=== PATIENT | male | born 1995 | race Caucasian/White ===

== ENCOUNTER 2019-06-10 09:55 | Inpatient (IN) ==
[2019-06-10] MEDS ORDERED: NS 1,000 ML IV ONE ×2 (10:10→14:07)
[2019-06-10] MEDS ORDERED: ZOFRAN IV ONE (10:10)
[2019-06-10 10:45] LABS: BASO# 0.02 X1000 (0.0-0.2); BASO% 0.1 % (0.0-0.8); EOS# 0.02 X1000 (0.0-0.7); EOS% 0.1 % (0.0-10.0); HEMATOCRIT 48.2 % (42.0-52.0); HEMOGLOBIN 15.8 g/dL (14.0-18.0); IMM GRAN# 0.04 X1000 (0.0-0.04); IMM GRAN% 0.2 % (0.0-0.5); LYMPH# 0.31 X1000 (1.2-3.4); LYMPH% 1.6 % (20.5-51.1); MCH 25.7 PG (27-31); MCHC 32.8 g/dL (33-37); MCV 78.5 FL (81-99); MONO# 0.89 X1000 (0.11-0.59); MONO% 4.6 % (1.7-9.3); MPV 10.9 FL (7.4-10.4); NEUT# 17.86 X1000 (1.4-6.5); NEUT% 93.4 % (42.2-75.2); PLT 280 X1000 (130-400); RBC 6.14 XMIL (4.7-6.1); RDW 14.6 % (11.5-14.5); WBC 19.14 X1000 (4.8-10.8)
[2019-06-10 10:54] LABS: AGAP 13; ALBUMIN 4.5 g/dL (3.5-5.0); ALKALINE PHOSPHATASE 87 U/L (32-122); BUN 15 mg/dL (8-22); CALCIUM 9.3 mg/dL (8.8-10.2); CHLORIDE 101 mmol/L (98-107); COSMO 281; ESTIMATED GFR > 60; GLUCOSE 118 mg/dL (70-104); GOT 22 U/L (10-34); GPT 19 U/L (10-44); LIPASE 16 U/L (13-60); POTASSIUM 4.4 mmol/L (3.5-5.1); SODIUM 140 mmol/L (136-145); TCO2 27 mmol/L (25-35); TOTAL PROTEIN 7.1 g/dL (6.3-8.3)
[2019-06-10 10:57] LABS: LYMPHS 7 % (21-51); MONO 3 % (1-9); SEGS 90 % (42-75)
[2019-06-10 11:28] LABS: BILIRUBIN URINE NEGATIVE (NEGATIVE); BLOOD URINE NEGATIVE (NEGATIVE); CLARITY CLEAR (CLEAR); COLOR YELLOW; GLUCOSE URINE NEGATIVE (NEGATIVE); KETONE URINE TRACE mg/dL (NEGATIVE); LEUKOCYTES URINE TRACE (NEGATIVE); NITRITE URINE NEGATIVE (NEGATIVE); PROTEIN URINE TRACE mg/dL (NEGATIVE); SP GRAVITY URINE 1.005; UROBILINOGEN URINE 1 mg/dL
[2019-06-10 11:52] LABS: URINE EPITHELIAL CELLS <10 /HPF (<10); URINE SOURCE CLEAN CATCH; URINE WBC <10 /HPF (<10)
--- NOTE | 2019-06-10 12:36 | Diag Imaging Result Doc PS360 ---
EXAM: CHEST-1 VIEW HISTORY: r/o sepsis TECHNIQUE: Single view COMPARISON: None. FINDINGS: The lungs are well expanded. The heart is not enlarged. The vessels are not distended. There are no infiltrates. No effusion identified. IMPRESSION: No pneumonia Electronically signed by Shaheen Hartmann 06/10/2019 12:34 PM
--- NOTE | 2019-06-10 12:51 | Diag Imaging Result Doc PS360 ---
EXAM: CT ABD/PELVIS W/IV CONT ONLY HISTORY: abdo pain TECHNIQUE: CT abdomen and pelvis with intravenous contrast COMPARISON: None. FINDINGS: No calcified gallstones or adjacent inflammation. Normal liver, spleen, pancreas, adrenal glands, and kidneys. No hydronephrosis. Normal aorta. There are multiple fluid distended loops of bowel in the upper and mid abdomen. There is stool throughout the colon. The colon is not overly distended. No inflammation about the cecum. No abscess. Urinary bladder is only mildly distended. Normal prostate. IMPRESSION: Ileus or early partial obstruction. There is likely enteritis. This exam was performed using automated exposure control, adjustment of mA or kV according to patient size, and/or use of iterative reconstruction technique. Electronically signed by Shaheen Hartmann 06/10/2019 12:48 PM
[2019-06-10 13:36] LABS: INR 0.99; PROTIME 13.6 Seconds (11.0-16.0)
[2019-06-10 13:37] LABS: PTT 30.7 Seconds (22.3-41.8)
--- NOTE | 2019-06-10 13:59 | PROVIDER DOCUMENTATION ---
This chart was entered by Alexsandra Guaman Scribe, acting as scribe for Soren Landeros MD. HPI-Abdominal Pain/GI Problem - General Chief Complaint: Abdominal Pain Stated Complaint: VOMITING Time Seen by Provider: 06/10/19 10:10 Source: patient Allergies/Adverse Reactions: Patient Allergies Allergy/AdvReac Type Severity Reaction Status Date / Time promethazine HCl * AdvReac Unknown Verified 04/09/19 20:11 [From Phenergan] Home Medications: Home Medication List Medication Instructions Recorded Confirmed Last Taken Type NK [No Home Medications] 06/10/19 06/10/19 Unknown History - History of Present Illness-ABD Nature of Presenting Problems: Patient is a 24 year old male who presents with generalized abdominal pain. States nausea, vomiting and diarrhea with abdominal pain. Reports symptoms started last night. Abdominal Pain Onset Location: reports: generalized abdomen Pain Radiation: reports: no radiation Quality of Pain: reports: cramping Severity in ED: reports: mild Onset/Duration: reports: last night Timing: reports: still present Modifying Factors: improves with: nothing Associated Symptoms: reports: diarrhea, nausea, vomiting # of Diarrhea Episodes: 4 # of Vomiting Episodes: 10 Bruising or Bleeding Gums?: No Similar Symptoms Previously?: Yes Recently seen or treated by another doctor?: No Review of Systems - Adult - REVIEW OF SYSTEMS - ADULT Constitutional: reports: no symptoms reported. denies: chills, fever, fatique Eyes: reports: no symptoms reported Ears, Nose, Mouth & Throat: reports: no symptoms reported Cardiovascular: reports: no symptoms reported Respiratory: reports: no symptoms reported Gastrointestinal: reports: see HPI, abdominal pain (generalized), diarrhea, nausea, vomiting Genitourinary: reports: no symptoms reported Musculoskeletal: reports: no symptoms reported Integumentary: reports: no symptoms reported Neurological: reports: no symptoms reported Psychiatric: reports: no symptoms reported Endocrine: reports: no symptoms reported Hematologic/Lymphatic: reports: no symptoms reported Allergic/Immunologic: reports: no symptoms reported All Other Systems: Reviewed and Negative Past History - Adult - PAST MEDICAL HISTORY-ADULT Review of Records: reports: Old Records Reviewed, Social history reviewed & non- contributory. Major Childhood Illnesses: reports: denies history Cardiovascular: reports: denies history Respiratory: reports: denies history Gastrointestinal: reports: denies history Obstetrical/Gynecological: reports: denies history Genitourinary: reports: denies history Musculoskeletal: reports: denies history Neurological: reports: denies history Endocrine/Immune: reports: denies history Other Conditions: reports: denies history - PRIOR SURGERIES/PROCEDURES Surgical/Procedure History: reports: reviewed, not pertinent - IMMUNIZATION STATUS Childhood Immunizations: See Nurse Assessment Flu Vaccine: See Nurse Assessment - FAMILY HISTORY Family History: reviewed, not pertinent - SOCIAL HISTORY Smoking: cigarettes, less than 1 pack/day Provider spent 3-5 mins advising pt. on dangers of tobacco.: Discussed manners to quit use, and f/u contacts for add'l counseling. Substance Use: denies Physical Exam-General - PHYSICAL EXAM-ADULT Initial Vital Signs Reviewed: Yes - CONSTITUTIONAL General Appearance: alert, no apparent distress. negative: lethargic - HEAD, EARS, NOSE, MOUTH & THROAT HENMT: normocephalic/atraumatic, other (dry mucous membranes). negative: angioedema - RESPIRATORY Respiratory: chest non-tender, lungs clear, normal breath sounds. negative: rales, stridor, wheezing - CARDIOVASCULAR Cardiovascular: normal peripheral pulses, regular rate, rhythm. negative: tachycardia - GASTROINTESTINAL (ABDOMEN) Abdominal Exam: normal bowel sounds, soft, tenderness (diffuse). negative: g uarding, rigid - SKIN Integumentary: normal color, normal turgor, warm/dry. negative: diaphoresis, pallor, rash - NEUROLOGIC Neurologic: grossly normal. negative: aphasia, facial droop - PSYCHIATRIC Psych/Mental Status: normal mood/affect, oriented x 3. negative: anxious Progress - PLAN OF CARE/RESULTS Progress/Plan/Lab Results: Vital Signs - 8 hr 06/10/19 10:03 Temperature 98 F Pulse Rate 110 H Respiratory Rate 18 Blood Pressure 101/69 O2 Sat by Pulse Oximetry 100 Orders Category Date Time Status AMYLASE [CHEM] Stat Lab 06/10/19 10:19 Received CBC WITH DIFF [HEME] Stat Lab 06/10/19 10:19 Received COMPREHENSIVE METABOLIC PANEL [CHEM] Stat Lab 06/10/19 10:07 Uncollected LIPASE [CHEM] Stat Lab 06/10/19 10:[address] W/POSS RFLX CULT [URINALYSIS] Stat Lab 06/10/19 10:07 Uncollected 0.9% Sodium Chloride Inj [Ns] 1,000 ml Med 06/10/19 10:10 Active IV 999 mls/hr Ondansetron [Zofran] Med 06/10/19 10:10 Discontinued 4 mg IV NOW ONE Result Diagrams: 06/10/19 10:19 06/10/19 10:19 - XRAY 1 XRAY Study: Chest Impression: See EMR Report ( EXAM: CHEST-1 VIEW HISTORY: r/o sepsis TECHNIQUE: Single view COMPARISON: None. FINDINGS: The lungs are well expanded. The heart is not enlarged. The vessels are not distended. There are no infiltrates. No effusion identified. IMPRESSION: No pneumonia Electronically signed by Shaheen Hartmann 06/10/2019 12:34 PM 06/10/19 1234 Interpreting Physician: Shaheen Hartmann MD Dictated Date/Time: 06/10/19 1233 cc: Soren Landeros MD; None,PCP) - CT/MRI 1 CT Study: Abdomen, Pelvis Impression: See EMR Report ( EXAM: CT ABD/PELVIS W/IV CONT ONLY HISTORY: abdo pain TECHNIQUE: CT abdomen and pelvis with intravenous contrast COMPARISON: None. FINDINGS: No calcified gallstones or adjacent inflammation. Normal liver, spleen, pancreas, adrenal glands, and kidneys. No hydronephrosis. Normal aorta. There are multiple fluid distended loops of bowel in the upper and mid abdomen. There is stool throughout the colon. The colon is not overly distended. No inflammation about the cecum. No abscess. Urinary bladder is only mildly distended. Normal prostate. IMPRESSION: Ileus or early partial obstruction. There is likely enteritis. This exam was performed using automated exposure control, adjustment of mA or kV according to patient size, and/or use of iterative reconstruction technique. Electronically signed by Shaheen Hartmann 06/10/2019 12:48 PM 06/10/19 1248 Interpreting Physician: Shaheen Hartmann MD Dictated Date/Time: 06/10/19 1241 cc: Soren Landeros MD; None,PCP) - CONSULTS/PCP/HOSPITALIST Notification #1 *Consult/PCP/Hospitalist*: Dr. Esquivel Time Discussed: 13:55 Reason/Comments: Dr. Landeros consulted with Dr. Esquivel about patient Consult Disposition: Will see in ED, Admit Departure - Departure Date of Disposition Decision: 06/10/19 Time of Disposition Decision: 13:55 DIAGNOSIS: Ileus, Leukocytosis, Enteritis, Sepsis Disposition: ADMITTED INPATIENT 09 Certified Medical Emergency: Emergent Condition: Fair Referrals and Follow-Ups: None,PCP [Primary Care Provider] - Discharge Education: Steps to Quit Smoking, [id number] - Critical Care Note This patient required my direct & personal management of CC.: No Attestation - Physician/ HAKAN Attestation Patient care was provided by Advanced Practice Provider:: No The physician spent face to face time with patient:: Yes Advanced Practice Provider documentation review:: Supervising physician onsite and consulted in the evaluation and care of this patient. The physician did have a face to face encounter with the patient. Sepsis: Tissue Perfusion Assmt - Physical Exam Assessment Date: 06/10/19 Time Assessment Initialized: 14:09 Vital Signs: Last Vital Signs Temp 99.2 F 06/10/19 13:09 Pulse 89 06/10/19 13:44 Resp 18 06/10/19 13:44 BP 105/57 06/10/19 13:52 Pulse Ox 97 06/10/19 13:44 Height 5 ft 10 in Weight 68.039 kg Lung Sounds:: lungs clear Heart Sounds:: Regular Peripheral Pulse Evaluation:: radial (R): 4+, radial (L): 4+, dorsalis-pedis (R): 4+, dorsalis-pedis (L): 4+, posterior tibialis (R): 4+, posterior tibialis (L): 4+ Skin Exam:: turgor good - Impression Impression:: Tissue Perfusion Adequate - Plan Plan:: See Orders This chart was documented by the indicated scribe, (Alexsandra Guaman Scribe) and accurately reflects the services I performed and decisions made by me, Soren Suh MD, as attested by the provider's signature.
[2019-06-10] MEDS ORDERED: LEVAQUIN 500 MG/D5W 500 MG/100 ML IVPB IV ONE (14:07)
[2019-06-10] MEDS ORDERED: ZOFRAN IV PRN (14:26)
[2019-06-10] MEDS ORDERED: NS 1,000 ML IV SCH (14:30)
[2019-06-10] MEDS: NS 1,000 ML IV SCH ×2 (15:33→23:13)
[2019-06-10] MEDS: FLAGYL 500 MG/NS 500 MG/100 ML IVPB IV SCH ×2 (15:33→20:51)
[2019-06-10] MEDS: TYLENOL PO PRN ×2 (17:22→23:10)
[2019-06-10 17:32] LABS: UR AMPHETAMINES QUAL NONE DETECTED (NONE DETECT); UR BARBITUATES QUAL NONE DETECTED (NONE DETECT); UR BENZODIAZEPIN QUAL NONE DETECTED (NONE DETECT); UR CANNABINOIDS QUAL NONE DETECTED (NONE DETECT); UR COCAINE QUAL NONE DETECTED (NONE DETECT); UR METHADONE QUAL NONE DETECTED (NONE DETECT); UR OPIATES QUAL NONE DETECTED (NONE DETECT); UR OXYCODONE QUAL NONE DETECTED (NONE DETECT); UR PCP QUAL NONE DETECTED (NONE DETECT)
[2019-06-10] MEDS ORDERED: SODIUM CHLORIDE 0.9% INJ PRN (17:34)
[2019-06-10] MEDS ORDERED: PHENERGAN IV PRN (17:34)
[2019-06-10] MEDS: PHENERGAN PO PRN (18:02)
[2019-06-10] MEDS: NICODERM PATCH TD SCH (18:02)
--- NOTE | 2019-06-10 19:58 | HISTORY AND PHYSICAL ---
PRIMARY CARE PROVIDER: No one. PRIMARY NANOSCIENCE TECHNICIAN: Located at [facility], named Fred Deshpande. CHIEF COMPLAINT: Abdominal pain, vomiting, and diarrhea. HISTORY OF PRESENT ILLNESS: Mr. Reinier Singh is a 24-year-old male with a medical history of illicit drug history abuse with most recently it being methamphetamines. 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 Also had a history of viral meningitis and migraines. Apparently around 9 p.m. last night, started developing bilateral lower quadrant abdominal pain and then started having vomiting every 30 minutes of the water that he would drink, along with a 4 or 5 watery diarrhea-type stools. He did have chills, but denied fever, and imaging reveals that he has an ileus or early partial obstruction and even enteritis. We will get him transferred to [facility]. We will consult General Surgery, and once there is a GI on-call for non-private, then may be we can consult Gastroenterology if needed. PAST MEDICAL HISTORY: 1. 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 2. Viral meningitis at 4 years old. 3. Migraines. SURGICAL HISTORY: Full teeth extraction and currently has dentures. SOCIAL HISTORY: He is a [id number]-day smoker since the age of 15. Denies alcohol but uses crystal methamphetamine. The last time he used it was 1-1/2 months ago. He says marijuana he used last 3 years ago, and cocaine was 6 years ago. Currently living with his mom. 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 FAMILY HISTORY: On the mother's side of the family, grandfather had a heart attack in his 40s. There is Parkinson. His grandmother had a pacemaker, stroke, Alzheimer. On his father's side of the family, he had a heart attack in his 50s, had end-stage renal disease, lung cancer in his grandfather. ALLERGIES: IV Phenergan. HOME MEDICATIONS: None. REVIEW OF SYSTEMS: A 14 point review of systems is complete, and all were negative for those mentioned in the above HPI. PHYSICAL EXAMINATION: VITAL SIGNS: Temperature 99.2 degrees, heart rate 91, respiratory rate 17, blood pressure 109/60, O2 saturation 100% on room air. GENERAL: Mr. Reinier Singh is a 24-year-old male. He is in no acute distress. He is able answer questions appropriately. HEENT: Atraumatic, normocephalic. Pupils equal, round, and reactive to light. Extraocular movements intact. Mucous membranes are moist. He has his dentures in. NECK: Trachea midline. CARDIOVASCULAR: S1, S2. Regular rate and rhythm. No rubs, gallops, murmurs. No lower extremity edema. +2 dorsalis and radial pulses. Negative for JVD or carotid bruit bruits. PULMONARY: Clear to auscultation. Bilateral breath sounds. No accessory muscle use or work of breathing noted GASTROINTESTINAL: Soft, tender in bilateral lower quadrants. Hypoactive bowel sounds. Nondistended. EXTREMITIES: Moves all extremities equally with full range of motion. NEUROLOGIC: A and O x3. Follows commands. Sensory is intact. SKIN: Warm, dry, intact. LABORATORY DATA: White blood cells 19,000, hemoglobin 15, hematocrit 48, platelet count 280,000. INR 0.99, PTT is 30.7. Sodium 140, potassium 4.4, BUN 15, creatinine 1.0, glucose 118, calcium 9.3, bilirubin 0.60, AST 22, ALT 19 CK 69. Troponin less than 0.01. Albumin 4.5. Amylase 45, lipase 16. Lactate 2.3. Urinalysis: Trace protein, trace white blood cells. IMAGING: Abdominal and pelvic CT: Ileus or early partial obstruction, likely with enteritis. Chest x-ray: No pneumonia. ASSESSMENT AND PLAN: 1. Enteritis with elevated lactate and white blood cell count. Medications include Flagyl 500 mg IV every 6 hours. He also had a 1-time dose of Levaquin 500 mg. 2. Ileus versus early partial small bowel obstruction with history of gastroparesis. He will be on IV fluids and n.p.o. for now. General Surgery consulted for any recommendations. 3. History of Guillain-[place] and neuropathy of the feet. 4. Migraines. Currently complains of a headache. 5. History of cocaine, marijuana, and crystal methamphetamine abuse, but most recently was crystal methamphetamine. Cessation discussed. He probably needs assistance with quitting that, and we have ordered a urine drug screen. 6. Deep venous thrombosis prophylaxis. SCDs. Dictated by MATT Nuno for Ritesh Esquivel MD cc: MATT Nuno MD
--- NOTE | 2019-06-10 21:36 | HISTORY AND PHYSICAL ---
ADDENDUM: The patient presented to the hospital with abdominal pain, nausea, vomiting. States that all of his symptoms started yesterday and continued to worsen. Does have a history of gastroparesis. He has never had infection in his colon to their knowledge. CT shows enteritis versus questionable obstruction. We are going to admit him to the hospital, keep him NPO, place on antibiotics and will follow. Please see full note. cc: Ritesh Esquivel MD
--- NOTE | 2019-06-10 21:47 | CONSULTATION ---
DATE OF CONSULTATION: 06/10/2019 Mr. Reinier Singh is a is a 24-year-old white male admitted with generalized abdominal pain. We were asked to see him by our hospitalists. Mr. Reinier Singh is a 24-year-old white male who was feeling good yesterday but woke up during the night with nausea, vomiting and diarrhea. This has persisted causing him to present to the emergency department. A CT scan of his abdomen and pelvis was performed which suggested enteritis versus early small bowel obstruction. We were asked to evaluate him. He has had no previous abdominal surgery. No history of hernia. PAST MEDICAL HISTORY: He had Guillain-[place] and gastroparesis because of this, he is seen by credit risk management director at [place]. MEDICATIONS: None. ALLERGIES: Listed as Phenergan. FAMILY HISTORY: Was reviewed. It was not pertinent. His mother has some colon problems. SOCIAL HISTORY: He smokes less than a pack of cigarettes a day. He works in car [employer]. REVIEW OF SYSTEMS: A 14-point review of systems was performed and was essentially negative except for the history of present illness. On exam he is 5 feet 10 inches, weighs 150 pounds. Temperature is 98 degrees, pulse rate 110, blood pressure 101/69, O2 saturation 100%. He is awake, cooperative young male, slim, good otherwise healthy appearing. No jaundice. No oral lesions. No cervical or supraclavicular lymphadenopathy. His heart has regular rate. Lungs are clear to auscultation and percussion bilaterally. Abdomen was a little bit distended but not tender. He had no previous scar. No palpable mass. No costovertebral tenderness. Rectal exam was not performed. He does have palpable peripheral pulses. No peripheral edema. Neurologically he is alert and oriented x3 and appropriate. DATA: CT scan suggested enteritis versus early small-bowel obstruction. Otherwise was normal. IMPRESSION: Gastroenteritis with protracted nausea, vomiting and diarrhea. PLAN: He is being hydrated, receiving IV antibiotics and he has medications for symptoms such as nausea. cc: Nena Hayes MD
[2019-06-11] MEDS: FLAGYL 500 MG/NS 500 MG/100 ML IVPB IV SCH ×4 (04:06→21:00)
[2019-06-11 06:42] LABS: HEMATOCRIT 39.6 % (42.0-52.0); HEMOGLOBIN 13.1 g/dL (14.0-18.0); MCH 26.7 PG (27-31); MCHC 33.1 g/dL (33-37); MCV 80.7 FL (81-99); MPV 11.2 FL (7.4-10.4); RBC 4.91 XMIL (4.7-6.1); RDW 14.9 % (11.5-14.5); WBC 8.07 X1000 (4.8-10.8)
[2019-06-11 07:25] LABS: AGAP 8; BUN 9 mg/dL (8-22); CALCIUM 8.3 mg/dL (8.8-10.2); CHLORIDE 106 mmol/L (98-107); COSMO 277; CREATININE 1.1 mg/dL (0.7-1.2); ESTIMATED GFR > 60; GLUCOSE 87 mg/dL (70-104); MAGNESIUM 1.6 mg/dL (1.5-2.7); POTASSIUM 3.7 mmol/L (3.5-5.1); SODIUM 140 mmol/L (136-145); TCO2 26 mmol/L (25-35)
[2019-06-11] MEDS: NICODERM PATCH TD SCH (08:58)
[2019-06-11] MEDS: NS 1,000 ML IV SCH ×2 (08:59→20:45)
--- NOTE | 2019-06-11 17:27 | PROGRESS NOTE ---
DATE: 06/11/2019 SUBJECTIVE: Ms. Reinier Singh is clinically improved and he is having no vomiting and his diarrhea has improved. PLAN: We will decrease his IV fluids. I will begin him on clear liquids. I think his clinical course is consistent with enteritis. cc: Nena Hayes MD
[2019-06-11] MEDS: PHENERGAN PO PRN (20:19)
[2019-06-12] MEDS: NS 1,000 ML IV SCH (01:22)
[2019-06-12] MEDS: FLAGYL 500 MG/NS 500 MG/100 ML IVPB IV SCH ×2 (03:20→08:51)
[2019-06-12] MEDS: PHENERGAN PO PRN (08:49)
[2019-06-12] MEDS: NICODERM PATCH TD SCH (08:50)
[2019-06-12] MEDS: TYLENOL PO PRN (09:26)
[2019-06-12] MEDS ORDERED: PRILOSEC PO ONE (10:22)
[2019-06-12] MEDS ORDERED: NEURONTIN PO SCH (10:30)
--- NOTE | 2019-06-12 12:10 | Diag Imaging Result Doc PS360 ---
ABDOMEN FLAT/UPRIGHT - 06/12/2019 INDICATION: pain COMPARISON: None FINDINGS: There is a nonobstructive bowel gas pattern. No free air or abdominal calcifications. There is no constipation. IMPRESSION: Negative exam. Electronically signed by Manish Hernandez 06/12/2019 12:07 PM
[2019-06-12] MEDS ORDERED: IMODIUM PO PRN (12:14)
[2019-06-12] MEDS ORDERED: FLAGYL PO SCH (13:00)
--- NOTE | 2019-06-12 15:06 | PROGRESS NOTE ---
DATE: 06/12/2019 SUBJECTIVE: The patient has no major complaints. OBJECTIVE: Blood pressure 111/70, heart rate 64, respiratory rate 18, temperature 95 degrees, 99% on room air. Laboratory Data: White count has come down to 8000, hemoglobin and hematocrit 13 and 39, platelets of 209,000. Basic was normal. PROBLEM LIST: 1. Gastroenteritis. We will continue support, intravenous fluids, antiemetics. We will get stool studies. He has had some Flagyl. I will keep him on that for now, although I think this is most likely viral. 2. History of Guillain-[place], stable currently. He does have some neuropathy and we have discussed starting some Neurontin for that. 3. History of drug abuse. We will continue to follow. So far, he has stabilized. 4. Disposition. I think if he can tolerate oral intake and diarrhea is improving, he should be able to get home, hopefully later today. It may not happen until tomorrow. I have repeated his plain films and they appear to be negative. We will continue to monitor closely. cc: Clif Varma MD
--- NOTE | 2019-06-12 15:09 | PROGRESS NOTE ---
DATE: 06/11/2019 SUBJECTIVE: The patient felt better that morning. He was stable. OBJECTIVE: Blood pressure 111/70, heart rate 64, respiratory rate 18, temperature 98.5 degrees, 99% on room air.Cardiovascular: Regular rate and rhythm. Pulmonary: Bilateral breath sounds clear to auscultation. GI: Soft, nontender, nondistended. Bowel sounds are positive. LABORATORY DATA: White count 8, hemoglobin and hematocrit 50 and 48, platelets 280,000. PROBLEM LIST: Gastroenteritis. We will continue to advance his diet. He seems better. He is hungry. I do not think he has a bowel blockage. There are no clinical risk factors for a bowel blockage. I do not think he has had abdominal surgery before and he has stable bowel. He did have Guillain-[place] though but no surgery and he has a history of polysubstance abuse. In any case, patient's diet will be advanced and plan will be to discharge home but he did not tolerate p.o. very well. cc: Clif Varma MD
[2019-06-12 17:06] VITALS: BP 121/63
[2019-06-13] MEDS ORDERED: PRILOSEC PO SCH (07:00)
== END 2019-06-12 17:23 | disposition home or self-care (01) | DRG 392 ==
LOC: P.ED 09:55 → SUATTDRO 15:23 → 4N 15:23
PROVIDERS: ATTEND Internal Medicine